=== PATIENT | male | born 1995 | race Caucasian/White ===

== ENCOUNTER 2019-12-17 05:34 | Emergency (ER) | payer SELFPAY ==
--- NOTE | 2019-12-17 06:18 | ER Document Report ---
ED Psych Disorder / Suicide - General Chief Complaint: Psych Problem Stated Complaint: SUICIDE ATTEMPT Time Seen by Provider: 12/17/19 06:06 Notes: 24-year-old man presents to the emergency department with a history of depression and anxiety, no present medical care, apparently intoxicated and attempted to injure himself. He states that it was a mistake and that it was because he is intoxicated and he is not suicidal. He denies any other medical problems. TRAVEL OUTSIDE OF THE [place] IN LAST 30 DAYS: No - Related Data Allergies/Adverse Reactions: No Known Allergies Allergy (Verified 12/17/19 06:01) Past Medical History - Social History Smoking Status: Current Every Day Smoker Frequency of alcohol use: Occasional Drug Abuse: Marijuana Family History: Reviewed & Not Pertinent Patient has suicidal ideation: No - denies Patient has homicidal ideation: No GI Medical History: Reports: Hx Gastroesophageal Reflux Disease Psychiatric Medical History: Reports: Hx Depression - Immunizations Hx Diphtheria, Pertussis, Tetanus Vaccination: No Review of Systems - Review of Systems Notes: Constitutional: Intoxicated HENT: Negative for sore throat. Eyes: Negative for visual changes. Cardiovascular: Negative for chest pain. Respiratory: Negative for shortness of breath. Gastrointestinal: Negative for abdominal pain, vomiting or diarrhea. Genitourinary: Negative for dysuria. Musculoskeletal: Negative for back pain. Skin: + Multiple superficial lacerations left wrist. Neurological: Negative for headaches, weakness or numbness. 10 point ROS negative except as marked above and in HPI. Physical Exam - Vital signs Vitals: Temp Pulse Resp BP Pulse Ox 97.2 F 99 24 H 149/79 H 100 12/17/19 06:00 12/17/19 06:00 12/17/19 06:00 12/17/19 06:00 12/17/19 06:00 - Notes Notes: PHYSICAL EXAMINATION: Physical Exam: General: Well-nourished well-developed 24-year-old male in no acute distress HEENT: NC/AT, pupils equal round and reactive to light, MM moist,nares clear, oropharynx clear Neck: supple, no adenopathy, no masses. Lungs: clear, no wheezing, no rales no rhonchi CVS: Regular rate and rhythm no murmur gallop or rub Abdomen: Soft, active, nontender, no masses, no hepatosplenomegaly Ext: No edema clubbing or cyanosis. Neuro: Alert and responsive, moving all 4 extremities on command, cranial nerves intact. Skin: Several superficial lacerations involving the left volar wrist, most proximal laceration goes through the dermis and into the fatty tissue approximately 2.5 cm in length, neurovascular intact PSYCH: Normal mood, normal affect. Course - Re-evaluation Re-evalutation: 12/17/19 11:10 Patient notes that he was intoxicated and feels that he was not suicidal but impulsive and injuring himself. Laceration repair was performed and his parents are here and stating that they can take him home and get outpatient follow-up. - Vital Signs Vital signs: Temp Pulse Resp BP Pulse Ox 97.2 F 99 24 H 149/79 H 100 12/17/19 06:00 12/17/19 06:00 12/17/19 06:00 12/17/19 06:00 12/17/19 06:00 - Laboratory Result Diagrams: 12/17/19 06:20 12/17/19 06:20 Laboratory results interpreted by me: 12/17/19 12/17/19 06:20 06:20 WBC 12.8 H Absolute Neuts (auto) 8.4 H Glucose 113 H Albumin 5.1 H Salicylates < 1.0 L Acetaminophen < 10 L Procedures - Laceration/Wound Repair Left Wrist Time completed: 11:05 Wound length (cm): 2.5 Wound's Depth, Shape: Linear Laceration pre-procedure: Chloraprep applied, Sterile drapes applied Anesthetic type: 2% Lidocaine Wound explored: Clean Wound Repaired With: Sutures - Total of 7, 5-0 Vicryl sutures are placed in a running suture. Suture Size/Type: 5:0, Vicryl Number of Sutures: 7 Layer Closure?: No Post-procedure wound care: Sterile dressing applied Post-procedure NV exam normal: Yes Complications: No Discharge - Discharge Clinical Impression: Anxiety, Non-suicidal self-harm Alcohol intoxication Qualifiers: Complication of substance-induced condition: with unspecified complication Qu alified Code(s): F10.929 - Alcohol use, unspecified with intoxication, unspecified Depression Qualifiers: Depression Type: unspecified Qualified Code(s): F32.9 - Major depressive disorder, single episode, unspecified Laceration of left wrist Qualifiers: Encounter type: initial encounter Qualified Code(s): S61.512A - Laceration without foreign body of left wrist, initial encounter Condition: Good Disposition: HOME, SELF-CARE Instructions: Prophylactic Antibiotic ([facility]), Laceration Care ([facility]) Additional Instructions: Please follow-up with outpatient mental health, suture removal in 10 days if do not fully resorbed Return to the emergency department as needed. Prescriptions: Cephalexin Monohydrate [Keflex 500 mg Capsule] 500 mg PO Q8H 5 Days #15 capsule Forms: Return to Work
[2019-12-17 06:32] LABS: ABSOLUTE BASOPHILS # (AUTO) 0.1 10^3/uL (0.0-0.2); ABSOLUTE LYMPHOCYTES (AUTO) 3.6 10^3/uL (0.5-4.7); ABSOLUTE MONOCYTES (AUTO) 0.7 10^3/uL (0.1-1.4); ABSOLUTE NEUT (AUTO) 8.4 10^3/uL (1.7-8.2); BASOPHILS % (AUTO) 0.5 % (0-2); EOSINOPHILS % (AUTO) 0.4 % (0-6); HEMATOCRIT 42.3 % (37.9-51.0); HEMOGLOBIN 14.6 g/dL (13.5-17.0); LYMPHOCYTES % (AUTO) 27.8 % (13-45); MEAN CORPUSCULAR HEMOGLOBIN 31.1 pg (27.0-33.4); MEAN CORPUSCULAR HGB CONC 34.5 g/dL (32.0-36.0); MEAN CORPUSCULAR VOLUME 90 fl (80-97); MONOCYTES % (AUTO) 5.6 % (3-13); PLATELET COUNT 370 10^3/uL (150-450); SEGMENTED NEUTROPHILS % (AUTO) 65.7 % (42-78); TOTAL CELLS COUNTED % (AUTO) 100 %; WHITE BLOOD COUNT 12.8 10^3/uL (4.0-10.5)
[2019-12-17 06:34] LABS: APPEARANCE,URINE CLEAR; BILIRUBIN,URINE NEGATIVE (NEGATIVE); COLOR,URINE COLORLESS; GLUCOSE, URINE NEGATIVE (NEGATIVE); KETONES,URINE NEGATIVE (NEGATIVE); LEUKOCYTE ESTERASE,URINE NEGATIVE (NEGATIVE); NITRITE,URINE NEGATIVE (NEGATIVE); PROTEIN,URINE NEGATIVE (NEGATIVE); URINE SPECIFIC GRAVITY 1.002; UROBILINOGEN,URINE NEGATIVE mg/dL (<2.0)
[2019-12-17] MEDS ORDERED: LORAZEPAM INJ 2 MG/1 ML VIAL IV ONE (06:39)
[2019-12-17 06:48] LABS: ALBUMIN 5.1 g/dL (3.5-5.0); ALCOHOL 198 mg/dL (NONE DETECTED); ALKALINE PHOSPHATASE 82 U/L (38-126); ANION GAP 15 (5-19); ASPARTATE AMINO TRANSFERASE 24 U/L (17-59); BILIRUBIN,TOTAL 0.4 mg/dL (0.2-1.3); BLOOD UREA NITROGEN 10 mg/dL (7-20); CALCIUM 9.7 mg/dL (8.4-10.2); CARBON DIOXIDE 23 mmol/L (22-30); CHLORIDE 107 mmol/L (98-107); GLUCOSE 113 mg/dL (75-110); POTASSIUM 3.8 mmol/L (3.6-5.0); TOTAL PROTEIN 8.1 g/dL (6.3-8.2)
[2019-12-17 06:49] LABS: ACETAMINOPHEN < 10 ug/mL (10-30); SALICYLATE < 1.0 mg/dL (2.0-20.0); URINE AMPHETAMINES SCREEN NEGATIVE; URINE BARBITURATES SCREEN NEGATIVE; URINE BENZODIAZEPINES SCREEN NEGATIVE; URINE COCAINE SCREEN NEGATIVE; URINE METHADONE SCREEN NEGATIVE; URINE PHENCYCLIDINE SCREEN NEGATIVE
[2019-12-17 06:50] LABS: URINE MARIJUANA (THC) SCREEN UNCONFIRMED POSITIVE
[2019-12-17] MEDS ORDERED: LIDOCAINE 1% INJ-PF (10 MG/ML) 30 ML SDV INJ ONE (09:52)
[2019-12-17 11:40] VITALS: BP 147/62
--- NOTE | 2019-12-17 15:34 | PSYCHOLOGICAL NOTE ---
Psych Note - Psych Note Date seen by psych provider: 12/17/19 Time seen by psych provider: 08:15 Psych Note: Reason for Consult: Suicidal ideation, self harm Patient does not have an 24 hour petition for evaluation on chart; however, a psychiatric consult has been requested. Patient has multiple cuts going across is left inner wrist. He is currently intoxicated with a BAL of 198. Patient will be evaluated once clinically sober. Patient's parents at bedside and clinician conducted check in They disclose the patient has been under stress because his hours at [employer] have been reduced and this week he only got 10 hours. They disclosed he has a lot of bills like child support, rent, food ect and he has been worried about how he would pay everything. They disclosed the patient does not do well with alcohol and "today proves that." They report he now has 5 strikes with [employer] so he no longer has a job. He will not be able to pay rent on the . They disclosed they plan to have the patient move in with them so he can get back on his feet. They are comfortable with the plan of him coming to their home after discharge. They disclose the patient has a diagnosis of ADHD from when he was young and was on medications, but he did not like to take them because of how they made him feel. They report concern the patient maybe "manic depressant" because his moods are always swinging. The patient use to be on Welbutrin and while the family noticed small improvement, they are unsure if that was the right medication for him. They are hoping to get the patient to mental health services and started on medication again. Patient is still unable to be awaken for evaluation. Clinician notes multiple cuts on the inner left wrist of the patient with dried blood. Patient's mother asked if the patient will need stitches; attending nurse confirms. Clinician notes the patient was discharged to family by medical attending physician prior to completion of evaluation. Patient was still intoxicated and would not have been able to engage appropriately in an evaluation.
== END 2019-12-17 11:43 | disposition home or self-care (01) ==
LOC: ER 05:34
DX: S61.512A Laceration without foreign body of left wrist, initial encounter (principal); X78.9XXA Intentional self-harm by unspecified sharp object, initial encounter; F10.129 Alcohol abuse with intoxication, unspecified; Y90.6 Blood alcohol level of 120-199 mg/100 ml; F41.9 Anxiety disorder, unspecified; F32.9 Major depressive disorder, single episode, unspecified; F17.200 Nicotine dependence, unspecified, uncomplicated; F12.10 Cannabis abuse, uncomplicated
CPT/HCPCS: 99284; 96374; 36415; 80307 ×4; 85025; 80053; 81001; 12001; J3490; J2060